=== PATIENT | male | born 1990 | race Caucasian/White ===

== ENCOUNTER 2016-12-04 09:25 | Emergency (ER) | payer OTHER ==
--- NOTE | 2016-12-04 10:16 | ERNOTE ---
Medical Problem HPI - Narrative Date of Service: 12/04/16 - General Chief Complaint: General Assessment Time Seen by Provider: 12/04/16 09:41 Source: patient Exam Limitations: no limitations - Immun/Allergies/Home Medications Immunizations: IMMUNIZATION HX Immunizations Up to Date Yes History of Influenza Vaccine No Hx Pneumococcal Vaccination No Allergies/Adverse Reactions: Allergies No Known Allergies Allergy (Verified 12/04/16 09:35) Home Medications: HOME MEDICATIONS Aspirin 81 mg PO DAILY 12/04/16 [Last Taken Unknown] Multivitamin [Multivitamins] 1 each PO DAILY 12/04/16 [Last Taken Unknown] - History of Present History Narrative: While working patient stuck his finger with an insulin needle. Patient was cleaning a trade in vehicle and at this point the source of the needle can not be identified. Date (Duration): 12/04/16 Timing: other - One event prior arrival Severity: mild Modifying Factors - (Improves): Present: other - nothing Modifying Factors - (Worsens): Present: other - nothing Review of Systems - Review of Systems Constitutional: Present: no symptoms reported EYE: Present: no symptoms reported ENT: Present: no symptoms reported Respiratory: Present: no symptoms reported Gastrointestinal/Abdominal: Present: no symptoms reported Genitourinary: Present: no symptoms reported Musculoskeletal: Present: no symptoms reported Skin: Present: other - Patient has a puncture wound to the L hand middle finger not bleeding Endocrine: Present: no symptoms reported Hematologic/Lymphatic: Present: no symptoms reported Psych: Present: no symptoms reported All Other Systems: All systems neg except as marked - Patient's Past Medical History Patient History - Medical: No pertinent hx Patient History - Cardiac/Respiratory: No pertinent hx Patient History - Cancer: No Hx of Cancer Patient History - Surgical Procedures: Other Patient History - Other: None - Social History Living Situations: home Abuse History: No History of abuse Psych History: No pertinent hx Smoking Status: Current every day smoker Have you smoked in the past 12 months: Yes Alcohol Use: occasionally Drug Use: none - Immunizations Immunizations Up to Date: Yes Hx Pneumococcal Vaccination: No History of Influenza Vaccine: No Physical Exam - Physical Exam General Appearance: Present: wd/wn, alert, no apparent distress Eye Exam: Normal inspection: bilateral Ears, Nose, Throat: Present: normal ENT inspection, normal pharynx Neck: Present: normal inspection, nontender Respiratory: Present: no respiratory distress, normal breath sounds, no accessory muscle use, chest nontender, lungs clear Cardiovascular/Chest: Present: regular rate, rhythm, no murmur, normal peripheral pulses Gastrointestinal/Abdominal: Present: normal bowel sounds, nontender, nondistended, soft, no organomegaly Back Exam: Present: normal inspection Extremity Exam: Present: non-tender, normal range of motion, no edema. Absent: bony tenderness, joint redness, joint swelling Neurological Exam: Present: alert, oriented, normal mood/affect, no motor/ sensory deficits Skin Exam: Present: normal color, warm/dry, other - Patient has a small puncture wound on the L hand 3rd phalange that is not bleeding at the moment ED Progress - Date and Time Seen: Date and Time: 12/04/16 10:06 The needle was brought in an envelop. The needed was complete and looked clean. 12/04/16 10:27 I was informed that at this point [facility] has not rapid HIV Testing and all ordered labs area send out. - Vital Signs Patient's Vital Signs:: I have reviewed the patient's vital signs. Vital Signs: Vital Signs 12/04/16 09:31 Temperature 36.8 C Pulse Rate 85 Respiratory 16 Rate Blood Pressure 133/57 O2 Sat by Pulse 99 Oximetry - Progress/Reassessment Chief Complaint: General Assessment - Transfer of Care Expected Disposition: Discharge Plan - Plan Plan: Patient was given Post Exposure to Blood and Body Fluids prophylaxis. Patient was oriented on risk and benefits of Tx and patient wants Tx for his condition. Labs has been ordered and patient has been informed that he need to follow up with Workers Compensation Provider. Departure - Departure Clinical Impression: General medical examination Needle exposure Qualifiers: Encounter type: initial encounter Qualified Code(s): X58.XXXA - Exposure to other specified factors, initial encounter Disposition: Home self-care Condition: Stable Instructions: Body Fluid Exposure Information, Needlestick Injury Additional Instructions: You will need to follow up with Workers Compensation Provider. Your labs must be repeated at 3 and 6 months from today.
--- OUTSIDE RECORDS SUMMARY | 2016-12-04 10:18 | XMS REPORT | Continuity of Care Document ---
:1990 Author Organization [facility] ([facility]) Address [address] [place] [address] Phone [phone] Care Team Providers Name Role Phone Manuel Lehman Primary Care Provider [phone] Source Comments This disclosure is being made pursuant to the Care Everywhere program, applicable federal and state laws, and may not contain all informaitonavailable regarding this patient.[facility] ([facility]) Active Allergies and Adverse Reactions No Known Allergies Current Medications No known medications Active Problems Problem Noted Date Chest pain, unspecified 05/16/2015 Social History Tobacco Use Types Packs/Day Years Used Date Current Every Day Smoker Cigarettes 1 Smokeless Tobacco: Never Used Comments:Pt states he uses 3 to 4 e-cigarettes per day. Last Filed Vital Signs Vital Sign Reading Time Taken Blood Pressure 112/74 05/16/2015 10:27 AM CDT Pulse 72 05/16/2015 10:27 AM CDT Temperature 36.2 C (97.2 F) 05/16/2015 10:27 AM CDT Respiratory Rate 16 05/16/2015 10:27 AM CDT Height 1.676 m (5' 6") 05/16/2015 10:27 AM CDT Weight 60.328 kg (133 lb) 05/16/2015 10:27 AM CDT Body Mass Index 21.48 05/16/2015 10:27 AM CDT Oxygen Saturation 98% 05/16/2015 10:27 AM CDT Plan of Care Health Maintenance Due Date Last Done Comments Hepatitis B Vaccine (1 of 3 - Primary Series) 1992 HPV Vaccine (1 of 3 - Male 3 Dose Series) 2003 Tdap Vaccine 2003 Lipid Disorder Screening 2010 MMR Vaccine 2010 Td Vaccine 2010 Varicella Vaccine (1 of 2 - Adult - No Evidence of 2010 Immunity) Pneumococcal Vaccine (1 of 1 - PPSV23) 2011 Influenza Vaccine: Seasonal (#1) 03/18/2016 Results from Last 3 Months Not on file
[2016-12-04 10:21] VITALS: BP 128/87
[2016-12-04] MEDS ORDERED: DIPHTH,PERTUSS(ACELL),TET VAC 0.5 ML VIAL IM ONE ×2 (10:29→10:30)
[2016-12-04] MEDS ORDERED: TENOFOVIR PO ONE (10:30)
[2016-12-04] MEDS ORDERED: RALTEGRAVIR POTASSIUM 400 MG TABLET PO ONE (10:30)
[2016-12-04] MEDS ORDERED: EMTRICITABINE PO ONE (10:30)
[2016-12-05 11:29] LABS: Hepatitis B Surface Ab Quant. <5 mIU/mL (> OR = 10)
== END 2016-12-04 10:37 | disposition home or self-care (01) ==
LOC: ER 09:25
DX: S61.233A Puncture wound without foreign body of left middle finger without damage to nail, initial encounter (principal); F17.210 Nicotine dependence, cigarettes, uncomplicated; W46.0XXA Contact with hypodermic needle, initial encounter; Y93.H9 Activity, other involving exterior property and land maintenance, building and construction; Y99.0 Civilian activity done for income or pay; Z23 Encounter for immunization